=== PATIENT | female | born 1990 | race Two or more races ===

== ENCOUNTER 2019-06-24 18:58 | Outpatient (CLI) | payer OTHER ==
[~2019-06-24 18:58] MED LIST: N
== END 2019-06-24 20:09 | disposition home or self-care (01) ==
LOC: NST 18:58
DX: Z34.83 Encounter for supervision of other normal pregnancy, third trimester (principal)

== ENCOUNTER 2019-08-05 11:36 | Inpatient (IN) | payer OTHER ==
[~2019-08-05] VITALS: Ht 154.9 cm; Wt 58.1 kg
[2019-09-03] MEDS ORDERED: PRENATAL CAPLE1 EAC1 PO (14:32)
== END 2019-09-06 13:48 | DRG 785 ==
LOC: SURG-SUITE 09-03 14:13 → LDR 09-03 14:13 → O/R 09-03 16:08 → SURG-SUITE 09-03 17:36 → OB/GYN 09-04 08:45 → SURG-SUITE 09-06 13:48
PROVIDERS: ADMIT Obstetrics & Gynecology; ATTEND Obstetrics & Gynecology Maternal & Fetal Medicine
PROC: 0UT70ZZ Resection of Bilateral Fallopian Tubes, Open Approach (ICD-10-PCS; 2019-09-03)
PROC: 4A1HXFZ Monitoring of Products of Conception, Cardiac Rhythm, External Approach (ICD-10-PCS; 2019-09-03)
PROC: 10D00Z1 Extraction of Products of Conception, Low, Open Approach (ICD-10-PCS; principal; 2019-09-03 17:00)
DX: O34.211 Maternal care for low transverse scar from previous cesarean delivery (principal); Z3A.39 39 weeks gestation of pregnancy; Z37.0 Single live birth

== ENCOUNTER 2019-08-09 09:02 | Outpatient (CLI) | payer OTHER | END 2019-08-09 09:36 | disposition home or self-care (01) | LOC: NST 09:02 | DX: Z34.83 Encounter for supervision of other normal pregnancy, third trimester (principal) ==

== ENCOUNTER 2019-08-13 11:02 | Outpatient (CLI) | payer OTHER | END 2019-08-13 11:36 | disposition home or self-care (01) | LOC: NST 11:02 | DX: Z34.83 Encounter for supervision of other normal pregnancy, third trimester (principal) ==

== ENCOUNTER 2019-08-27 09:56 | Outpatient (CLI) | payer OTHER | END 2019-08-27 10:49 | disposition home or self-care (01) | LOC: NST 09:56 | DX: Z34.83 Encounter for supervision of other normal pregnancy, third trimester (principal) ==

== ENCOUNTER 2023-05-24 21:21 | Emergency (ER) | payer OTHER ==
[~2023-05-24] VITALS: Ht 152.4 cm; Wt 49.9 kg
[~2023-05-24 21:21] MED LIST changes: +PRENATAL CAPLE1 EAC1 PO
[2023-05-24] MEDS ORDERED: PROTONIX20 MG PO (21:40)
[2023-05-24] MEDS ORDERED: PEPCID AC10 MG PO (21:40)
[2023-05-24] MEDS ORDERED: BENADRYL ALLERG25 MG PO (21:40)
[2023-05-24] MEDS ORDERED: FAMOTIDINE/PF 20 MG in 0.9 % SODIUM CHLORIDE 8 ML IV PUSH STA (21:58)
[2023-05-24] MEDS ORDERED: MEPERIDINE HCL/PF 25 MG/ML VIAL IM ONE (22:00)
[2023-05-24] MEDS ORDERED: 0.9 % SODIUM CHLORIDE 1,000 ML IV SCH (22:00)
[2023-05-24] MEDS ORDERED: ONDANSETRON HCL 2 MG/ML VIAL IV ONE (22:00)
[2023-05-24 22:12] LABS: HEMATOCRIT 35.6 % (36.0-45.00); HEMOGLOBIN 12.1 g/dL (12.0-15.00); MEAN CELL VOLUME 78.3 fL (80.00-100.00); MEAN CORPUSCULAR HEMOGLOBIN 26.6 pg (27.00-32.0); PLATELET COUNT 403 K/uL (150-450); RED BLOOD COUNT 4.55 M/uL (4.00-6.00); RED CELL DISTRIBUTION WIDTH 14.4 % (11.5-14.5)
[2023-05-24 22:25] LABS: INR 1.04; PARTIAL THROMBOPLASTIN TIME 30.7 SECONDS (22.0-34.0); PROTHROMBIN TIME 10.9 SECONDS (9.0-11.5)
[2023-05-24 22:28] LABS: ALBUMIN 3.8 gm/dL (3.4-5.0); BILIRUBIN TOTAL 0.24 mg/dL (0.3-1.2); CREATININE SERUM 0.66 mg/dL (0.55-1.02); GFR 103.14; GLOBULINA 3.7 G/DL (2.4-3.5); POTASSIUM 3.67 mEq/L (3.5-5.1); TOTAL PROTEIN 7.5 gm/dL (6.4-8.2)
[2023-05-24] MEDS ORDERED: ONDANSETRON HCL 2 MG/ML VIAL IV PRN (23:45)
[2023-05-24] MEDS ORDERED: MEPERIDINE HCL/PF 25 MG/ML VIAL IM PRN (23:45)
[2023-05-25] MEDS ORDERED: PIPERACILLIN/TAZOBACTAM SODIUM 3.375 GM in 0.9 % SODIUM CHLORIDE 100 ML IV SCH
[2023-05-25] MEDS ORDERED: MEPERIDINE HCL/PF 25 MG/ML VIAL IV ONE (09:30)
== END 2023-05-25 09:39 | disposition home or self-care (01) ==
LOC: ER 21:21
PROVIDERS: General Practice
DX: R10.32 Left lower quadrant pain (principal); Z91.040 Latex allergy status; Z91.018 Allergy to other foods; Z91.048 Other nonmedicinal substance allergy status